=== PATIENT | female | born 1975 | race Caucasian/White ===

== ENCOUNTER 2016-12-14 06:45 | Inpatient (IN) | payer OTHER ==
[~2016-12-14] VITALS: Ht 162.6 cm; Wt 90.7 kg
[2016-12-14 08:07] LABS: HEMOGLOBIN 10.6 gm/dl (12.3-15.3); RED BLOOD COUNT 3.56 M/UL (4.00-5.10); WHITE BLOOD COUNT 9.4 K/UL (4.5-11.0)
[2016-12-14 08:31] LABS: BUN/CREATININE RATIO 16 (0-10)
[2016-12-14] MEDS ORDERED: BUSPAR 10MG10 MG PO (14:43)
[2016-12-14] MEDS ORDERED: TRAZODONE HCL50 MG PO (14:43)
[2016-12-14] MEDS ORDERED: PROZAC20 MG PO (14:43)
[2016-12-14] MEDS ORDERED: BACTRIM DS TAB1 EACH PO (14:44)
[2016-12-14] MEDS ORDERED: LIORESAL TAB 1010 MG PO (14:44)
[2016-12-14] MEDS ORDERED: ZOFRAN4 MG PO (14:44)
[2016-12-14] MEDS ORDERED: IBUPROFEN800 MG PO (14:44)
[2016-12-14] MEDS ORDERED: CLARITIN10 MG PO (14:45)
[2016-12-14] MEDS ORDERED: MUCINEX D ER T1 EACH PO (14:45)
[2016-12-15 06:52] LABS: HEMOGLOBIN 11.3 gm/dl (12.3-15.3); RED BLOOD COUNT 3.77 M/UL (4.00-5.10); WHITE BLOOD COUNT 7.3 K/UL (4.5-11.0)
[2016-12-15 07:32] LABS: BUN/CREATININE RATIO 20 (0-10)
[2016-12-16 05:16] LABS: HEMOGLOBIN 10.7 gm/dl (12.3-15.3); RED BLOOD COUNT 3.57 M/UL (4.00-5.10)
[2016-12-16 05:17] LABS: WHITE BLOOD COUNT 5.4 K/UL (4.5-11.0)
[2016-12-16 05:34] LABS: BUN/CREATININE RATIO 20 (0-10)
[2016-12-17 08:15] LABS: BUN/CREATININE RATIO 23 (0-10)
[2016-12-17 09:24] LABS: HEMOGLOBIN 10.1 gm/dl (12.3-15.3); RED BLOOD COUNT 3.32 M/UL (4.00-5.10)
[2016-12-17 09:27] LABS: WHITE BLOOD COUNT 2.6 K/UL (4.5-11.0)
[2016-12-18 06:17] LABS: BUN/CREATININE RATIO 21 (0-10)
[2016-12-18] MEDS ORDERED: VITAMIN C 500500 MG PO (15:42)
[2016-12-18] MEDS ORDERED: DAKIN'S SOLUTI500 ML EXT (15:43)
[2016-12-18] MEDS ORDERED: NORCO 7.5-3251 EACH PO (15:44)
== END 2016-12-18 16:32 | disposition home or self-care (01) | DRG 571 ==
LOC: ER1 06:45 → ZEROF 11:29 → MED SURG 4 11:29
PROVIDERS: Physician Assistant; Podiatrist Foot & Ankle Surgery; ADMIT Internal Medicine
PROC: 0JBQ0ZZ Excision of Right Foot Subcutaneous Tissue and Fascia, Open Approach (ICD-10-PCS; principal; 2016-12-16 07:45)
DX: L03.115 Cellulitis of right lower limb (principal); I96 Gangrene, not elsewhere classified; F19.10 Other psychoactive substance abuse, uncomplicated; E66.9 Obesity, unspecified; Z88.0 Allergy status to penicillin; Z68.34 Body mass index [BMI] 34.0-34.9, adult
CPT/HCPCS: 36415; 73718; 80048; 80053; 80202; 83735; 84100; 85025; 85027; 86140; 87040; 87070; 87205; 90714; 93005; 96374; 96375; 99284; G0378; J1885; J2250; J2270; J2405; J2795; J3010; J3370; J7030; J7070; J7120